=== PATIENT | male | born 1975 | race Caucasian/White ===

== ENCOUNTER 2018-03-06 15:35 | Emergency (ER) | payer OTHER ==
--- NOTE | 2018-03-06 18:33 | ED ---
Skin Complaint - HPI Summary HPI Summary: 42-year-old male presents ER with complaints of rash has been ongoing for the past 4 days. Patient states it's very itchy it's on his arms and back. He has not tried any medications. Denies any discharge. States some are scabbing from scratching. Denies any fever or chills. No past medical history, however a few years ago he did have hyperglycemia however is not treated and was not diagnosed with diabetes at this time.. She denies any recent exposure to poison brenda. No known contacts with similar rash. States he has a normal sleep due to itching and feels exhausted. Nothing makes it better or worse. No new meds foods or soaps. - History of Current Complaint Chief Complaint: EDRashSkinAbscess Time Seen by Provider: 03/06/18 17:45 Stated Complaint: rash Hx Obtained From: Patient Hx From Patient Unobtainable Due To: Dementia Onset/Duration: Started Days Ago Skin Exposure Onset/Duration: Days Ago Timing: Constant Onset Severity: Mild Current Severity: Mild Pain Intensity: 3 Pain Scale Used: 0-10 Numeric Skin Location: Arm - And back Character: Pruritus, Redness, Raised Aggravating Symptom(s): Nothing Alleviating Symptom(s): Nothing Associated Signs & Symptoms: Rash - Allergy/Home Medications Allergies/Adverse Reactions: Allergies Allergy/AdvReac Type Severity Reaction Status Date / Time No Known Allergies Allergy Verified 03/06/18 15:47 PMH/Surg Hx/FS Hx/Imm Hx Endocrine/Hematology History: Denies: Hx Diabetes - Surgical History Surgery Procedure, Year, and Place: n/a - Immunization History Date of Tetanus Vaccine: Unknown Immunizations Up to Date: Yes Infectious Disease History: No Infectious Disease History: Denies: Traveled Outside the [place] in Last 30 Days - Family History Known Family History: Positive: None - Social History Alcohol Use: None Substance Use Type: Reports: None Smoking Status (MU): Never Smoked Tobacco Review of Systems Positive: Fatigue ENT: Negative Cardiovascular: Negative Respiratory: Negative Gastrointestinal: Negative Positive: Rash All Other Systems Reviewed And Are Negative: Yes Physical Exam Triage Information Reviewed: Yes Vital Signs On Initial Exam: Initial Vitals Temp Pulse Resp BP Pulse Ox 97.6 F 104 20 141/92 97 03/06/18 15:39 03/06/18 15:39 03/06/18 15:39 03/06/18 15:39 03/06/18 15:39 Vital Signs Reviewed: Yes Appearance: Positive: Well-Appearing, No Pain Distress, Well-Nourished Skin: Positive: Warm, Skin Color Reflects Adequate Perfusion, Dry, Erythema @ - Erythematous papules spread without any specific pattern and upper arms and back resembling dermatitis. No foreign body, discharge, tenderness. Excoriations noted throughout area of rash. Rest of skin exam normal. Negative : Cold, Soft, Cyanosis @, Target Lesions, Purpura, Scaly Skin/Lesions, Pale, Weeping Skin/Lesions Head/Face: Positive: Normal Head/Face Inspection Eyes: Positive: Normal, EOMI, PHILLIP, Conjunctiva Clear ENT: Positive: Hearing grossly normal Neck: Positive: Supple, Nontender Respiratory/Lung Sounds: Positive: Clear to Auscultation, Breath Sounds Present. Negative: Rales, Rhonchi, Wheezes Cardiovascular: Positive: Normal, RRR, Pulses are Symmetrical in both Upper and Lower Extremities. Negative: Murmur, Rub Abdomen Description: Positive: Nontender, Soft Bowel Sounds: Positive: Present Musculoskeletal: Positive: Normal, Strength/ROM Intact Neurological: Positive: Normal, Sensory/Motor Intact, Alert, Oriented to Person Place, Time, NV Bundle Intact Distally, Normal Gait Diagnostics - Vital Signs Vital Signs Temp Pulse Resp BP Pulse Ox 03/06/18 15:39 97.6 F 104 20 141/92 97 - Laboratory Lab Statement: Any lab studies that have been ordered have been reviewed, and results considered in the medical decision making process. Course/Dx - Course Course Of Treatment: Appears to be contact dermatitis/staph infection. will treat with Bactrim. no drainage available for culture. Recommend trying Benadryl at bedtime for itching and also over the counter hydrocortisone and Benadryl cream. Follow-up with PCP in 3 days for recheck. Aware worsening signs and symptoms watch out for. No other concerns at this time. - Differential Diagnoses - Skin Complaint Differential Diagnoses: Cellulitis, Contact Dermatitis, MRSA - Diagnoses Provider Diagnoses: Contact dermatitis, Staphylococcal infection of skin Discharge - Sign-Out/Discharge Documenting (check all that apply): Patient Departure - Discharge Plan Condition: Good Disposition: HOME Prescriptions: RX: predniSONE TAB* [Deltasone 20 MG TAB*] 20 mg PO DAILY #3 tab Sulfamethox/Trimethoprim DS* [Bactrim DS 800/160 TAB*] 1 tab PO BID #20 tab Patient Education Materials: Contact Dermatitis (ED) Referrals: Juan Rodgers MD [Primary Care Provider] - Additional Instructions: take prescribed medication as directed until entire dose if finished. also recommend taking over the counter benadryl at bedtime apply hydrocortisone or benadryl cream also sold over the counter any new or worsening symptoms please seek medication attention promptly. follow up with pcp to ensure improvement. - Billing Disposition and Condition Condition: GOOD Disposition: Home
[2018-03-06 18:36] VITALS: BP 140/60
== END 2018-03-06 18:33 | disposition home or self-care (01) ==
LOC: ED 15:35
DX: L25.9 Unspecified contact dermatitis, unspecified cause (principal); B95.8 Unspecified staphylococcus as the cause of diseases classified elsewhere; R53.83 Other fatigue
CPT/HCPCS: 99282

== ENCOUNTER → 2018-11-09 15:37 | Emergency (ER) | payer OTHER ==
[~2018-11-09 15:37] MED LIST: Cyclobenzaprine TAB* 10 MG PO ONE
--- NOTE | 2018-11-09 18:47 | ED ---
Lower Extremity - HPI Summary HPI Summary: 42-year-old male presents with left hip pain today. States the pain has been intermittent for the past couple days. He states he was sitting more yesterday. States pain is greatest when he tries to go up a hill or stairs. He 's had this pain in the past. He also states he had abdominal pain earlier but that has resolved. He did have some loose stool couple days ago. No fevers. No nausea vomiting. No back pain. No urinary symptoms. No testicular pain. Pain does not radiate to his groin. No numbness or tingling. No weakness. Hasn't tried anything for his pain. is currently under less stress and was just moved to half-way as loss home. No medical conditions. - History of Current Complaint Chief Complaint: EDExtremityLower Stated Complaint: LEFT LEG PAIN/STOMACH PAIN PER PT Time Seen by Provider: 11/09/18 18:13 Pain Intensity: 6 - Allergies/Home Medications Allergies/Adverse Reactions: Allergies Allergy/AdvReac Type Severity Reaction Status Date / Time No Known Allergies Allergy Verified 11/09/18 15:40 PMH/Surg Hx/FS Hx/Imm Hx Endocrine/Hematology History: Denies: Hx Diabetes Cardiovascular History: Denies: Hx Myocardial Infarction - Surgical History Surgery Procedure, Year, and Place: n/a - Immunization History Date of Tetanus Vaccine: Unknown Infectious Disease History: No Infectious Disease History: Denies: Traveled Outside the [place] in Last 30 Days - Family History Known Family History: Positive: None - Social History Alcohol Use: None Substance Use Type: Reports: None Smoking Status (MU): Never Smoked Tobacco Review of Systems Negative: Fever Negative: Chest Pain Negative: Shortness Of Breath Positive: Abdominal Pain - resolved Positive: Myalgia - left hip pain All Other Systems Reviewed And Are Negative: Yes Physical Exam Triage Information Reviewed: Yes Vital Signs On Initial Exam: Initial Vitals Temp Pulse Resp BP Pulse Ox 99.1 F 114 16 136/106 97 11/09/18 15:40 11/09/18 15:40 11/09/18 15:40 11/09/18 15:40 11/09/18 15:40 Vital Signs Reviewed: Yes Appearance: Positive: Well-Appearing Skin: Positive: Warm, Dry Head/Face: Positive: Normal Head/Face Inspection Eyes: Positive: Normal, Conjunctiva Clear ENT: Positive: Pharynx normal Respiratory/Lung Sounds: Positive: Clear to Auscultation, Breath Sounds Present Cardiovascular: Positive: Normal, RRR Abdomen Description: Positive: Nontender, Soft Bowel Sounds: Positive: Present Musculoskeletal: Positive: Strength/ROM Intact - left leg, Other - good pulses, tenderness over left hip flexor, pain greatest when tries to lift leg, sensation grossly intact, nontender back Neurological: Positive: Reflexes Intact - patella Psychiatric: Positive: Normal Diagnostics - Vital Signs Vital Signs Temp Pulse Resp BP Pulse Ox 11/09/18 15:40 99.1 F 114 16 136/106 97 - Laboratory Lab Statement: Any lab studies that have been ordered have been reviewed, and results considered in the medical decision making process. - Radiology hip Radiology Interpretation Completed By: ED Physician Summary of Radiographic Findings: no fracture Lower Extremity Course/Dx - Course Course Of Treatment: 42-year-old male presents with left hip pain today. States the pain has been intermittent for the past couple days. He states he was sitting more yesterday. States pain is greatest when he tries to go up a hill or stairs. He's had this pain in the past. He also states he had abdominal pain earlier but that has resolved. He did have some loose stool couple days ago. No fevers. No nausea vomiting. No back pain. No urinary symptoms. No testicular pain. Pain does not radiate to his groin. No numbness or tingling. No weakness. Hasn't tried anything for his pain. States is currently under less stress and was just moved to half-way as loss home. No medical conditions. On exam has tenderness over left hip flexors greatest when tries to raise his legs. Nontender back. Neurovascular intact. X-ray normal. Gave flexeril for the pain. Discussed likely has pain over the hip flexors. Told to stretch and placed heat and will give a short course of muscle relaxer. told to follow up primary. Patient understand and presents agrees with the plan. - Diagnoses Differential Diagnosis/HQI/PQRI: Positive: Fracture (Closed), Sprain, Strain Provider Diagnoses: Left hip pain Discharge - Sign-Out/Discharge Documenting (check all that apply): Patient Departure Patient Received Moderate/Deep Sedation with Procedure: No - Discharge Plan Condition: Good Disposition: HOME Patient Education Materials: Hip Pain (ED) Referrals: Juan Rodgers MD [Primary Care Provider] - Additional Instructions: stretch can apply ice or heat Take muscle relaxers three times a day Use ibuprofen or Tylenol for pain every 6 hours Follow up with primary within 5 days Return to ED if develop any new or worsening symptoms - Billing Disposition and Condition Condition: GOOD Disposition: Home
[2018-11-09 20:06] VITALS: BP 123/85
== END | disposition home or self-care (01) ==
LOC: ED 15:37
DX: M25.552 Pain in left hip (principal)
CPT/HCPCS: 99282; A9270-GY

== ENCOUNTER 2019-08-07 10:40 | Emergency (ER) | payer OTHER ==
--- OUTSIDE RECORDS SUMMARY | 2019-08-07 10:55 | XMS REPORT ---
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 Adjustment [id number] SNOMED-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 Adjustment 43085302 SNOMED-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 Relevant diagnostic tests/laboratory data Narrative No Information Procedures Procedure Code CodeSystem Target Date of Status Service Device Device Device Name Site Procedure Delivery Code Name UID Location Psychother [id number] SNOMED-CT () 2018-11-01 completed Mental apy, 45 4 Health- minutes [facility] with [facility] patient [address] [place] [address], [id number] [id number] Psychother [id number] SNOMED-CT () 2018-11-21 completed Mental apy, 45 4 Health- minutes Lucia with [facility] patient [address] [place] [address], [id number] [id number] Psychother [id number] SNOMED-CT () 2018-11-26 completed Mental apy, 45 4 Health- minutes [place] with [facility] patient [address] [place] [address], [id number] [phone] Psychother [id number] SNOMED-CT () 2018-12-03 completed Mental apy, 45 4 Health- minutes Lucia with [facility] patient [address] [place] [address], [phone] Psychother [id number] SNOMED-CT () 2018-12-10 completed Mental apy, 45 4 Health- minutes [place] with [facility] patient [address] [place] [address], [phone] [phone] Psychother [id number] SNOMED-CT () 2018-12-17 completed Mental apy, 45 4 Health- minutes [place] with [facility] patient [address] [place] [address], [id number] [phone] Psychother [id number] SNOMED-CT () 2018-12-24 completed Mental apy, 45 4 Health- minutes Lucia with [facility] patient [address] [place] [address], [phone] SNOMED-CT () 2019-02-05 completed Mental [address], [id number] SNOMED-CT () 2018-11-[address], [id number] SNOMED-CT () 2019-07-[address], [id number] SNOMED-CT () 2018-11-05 completed Mental [address], [id number] SNOMED-CT () 2018-12-[address], [id number] SNOMED-CT () 2019-06-[address], [id number] SNOMED-CT () 2019-06-24 completed Mental [facility], [id number] SNOMED-CT () 2019-01-23 completed Mental [address], [id number] SNOMED-CT () 2019-01-[address], [id number] [phone] SNOMED-CT () 2019-01-[address], [id number] [id number] Encounters/Encounter Diagnoses Encounter Name Encounter Diagnosis Diagnosis Diagnosis Date of Service Code Code Name CodeSystem Diagnosis Delivery Location [facility] [id number] Adjustment SNOMED-CT 2019-07-21 Behavioral Individual 30 disorder Health min with mixed Clinic [address], mood [place], [place], [phone] Vital Signs No Information Social History Element Description Description Start End Code CodeSystem AdditionalInfo Date Date SexAssignedAtBirth Male 1976-0 M AdministrativeGender 11-22 Hospital Discharge Instructions Reason For Referral Medical Equipment FDA Assessments
[2019-08-07] MEDS ORDERED: NS 0.9% 1000 ML** 1,000 ML IV ONE (11:14)
--- NOTE | 2019-08-07 11:39 | ED ---
Throat Pain/Nasal Congestion - HPI Summary HPI Summary: Pt is a 43 y/o M presenting to the ED with a chief complaint of R-sided facial edema. He states he first noticed it a couple of days ago and was pretty sure it was a sinus infection, so he took his fathers azithromycin for 3 days which seemed to reduce the swelling. He ran out, and the pain/edema seemed to flare up again, especially with the cold weather. He reports slight R ear pain and pressure in his R facial region. He denies nasal drainage, visual changes, cough , and sore throat. No trouble swallowing. - History of Current Complaint Chief Complaint: EDGeneral Time Seen by Provider: 08/07/19 11:05 Hx Obtained From: Patient Onset/Duration: Sudden Onset, Lasting Days, Still Present Severity: Moderate Associated Signs And Symptoms: Negative: Nasal Discharge Cough: None - Allergies/Home Medications Allergies/Adverse Reactions: Allergies Allergy/AdvReac Type Severity Reaction Status Date / Time No Known Allergies Allergy Verified 11/09/18 15:40 PMH/Surg Hx/FS Hx/Imm Hx Previously Healthy: Yes Endocrine/Hematology History: Reports: Hx Diabetes - not on medication rn, metformin made him very nauseous/ill Cardiovascular History: Denies: Hx Myocardial Infarction Sensory History: Denies: Hx Legally Blind, Hx Deafness Opthamlomology History: Denies: Hx Legally Blind EENT History: Denies: Hx Deafness - Surgical History Surgical History: None Surgery Procedure, Year, and Place: n/a - Immunization History Date of Tetanus Vaccine: Unknown Infectious Disease History: No Infectious Disease History: Denies: Traveled Outside the [place] in Last 30 Days - Family History Known Family History: Negative: Renal Disease - Social History Occupation: Employed Full-time Alcohol Use: None Hx Substance Use: No Substance Use Type: Reports: None Hx Tobacco Use: Yes Smoking Status (MU): Light Every Day Tobacco Smoker Review of Systems Eyes: Negative Positive: Ear Ache, Other - sinus pain. Negative: Sore Throat, Nasal Discharge Negative: Cough All Other Systems Reviewed And Are Negative: Yes Physical Exam - Summary Physical Exam Summary: Constitutional: Well-developed, Well-nourished, Alert. (-) Distressed Skin: Warm, Dry HENT: R maxillary edema. TMs are richter & pearly bilaterally. Poor dentition with no obvious apical abscess. No significant trismus, no submandibular swelling Eyes: Conjunctiva normal. No pain with EOM. Neck: Musculoskeletal ROM normal neck. (-) JVD, (-) Stridor, (-) Nuchal rigidity Cardio: Rhythm regular, rate tachycardic, Heart sounds normal; Intact distal pulses; Radial pulses are 2+ and symmetric. (-) Murmur Pulmonary/Chest wall: Effort normal. (-) Respiratory distress, (-) Wheezes, (-) Rales Abd: Soft, (-) tenderness, (-) Distension, (-) Guarding, (-) Rebound Musculoskeletal: (-) Edema Lymph: (+) Cervical adenopathy Neuro: Alert, Oriented x3 Psych: Mood and affect Normal Triage Information Reviewed: Yes Vital Signs On Initial Exam: Initial Vitals Temp Pulse Resp BP Pulse Ox 96.0 F 117 18 137/91 98 08/07/19 10:45 08/07/19 10:45 08/07/19 10:45 08/07/19 10:45 08/07/19 10:45 Vital Signs Reviewed: Yes Procedures - Sedation Patient Received Moderate/Deep Sedation with Procedure: No - Incision and Drainage Right Upper Site: molar R 1st Anesthesia: Topical, Local Instrument(s): Scalpel Diagnostics - Vital Signs Vital Signs Temp Pulse Resp BP Pulse Ox 08/07/19 10:45 96.0 F 117 18 137/91 98 - Laboratory Result Diagrams: 08/07/19 11:22 08/07/19 11:22 Lab Statement: Any lab studies that have been ordered have been reviewed, and results considered in the medical decision making process. - CT CT Maxillofacial CT Interpretation Completed By: Radiologist Summary of CT Findings: EXTENSIVE CARIOUS DISEASE WITH A 1.4 CM LOCULATED FLUID COLLECTION ANTERIOR TO THE ALVEOLAR PROCESS OF THE RIGHT MAXILLA CONSISTENT WITH ODONTOGENIC ABSCESS. ED physician has reviewed this report. EENT Course/Dx - Course Course Of Treatment: 43 y/o male w hx DM p/w R facial swelling, mild trismus on exam. - concern for dental abcesss. Check labs including CBC to assess for infection. Check CT max face. Will also give clindamycin. - attempted I&D w scant drainage, suspcicion for persistent abscesss. Able to open mouth well, no significant trismus. Tolerating PO. - lab w elevated BG, given fluids. has been on metformin in past. HR down to 70s. - will send home w clindamycin, needs urgent dental follow up. advised to return for worsening symptoms. - Diagnoses Provider Diagnoses: Dental abscess, Diabetes Discharge ED - Sign-Out/Discharge Documenting (check all that apply): Patient Departure - Discharge Plan Condition: Stable Disposition: HOME Prescriptions: Clindamycin HCl 450 mg PO TID 7 Days #63 capsule Ibuprofen TAB* [Motrin TAB* 800 MG] 800 mg PO TID PRN 10 Days #30 tab PRN Reason: Pain - Moderate Patient Education Materials: Dental Abscess (ED) Referrals: Cassandra Quintana DO [Primary Care Provider] - Additional Instructions: You were seen in the emergency department for facial swelling. Your CT scan showed a dental abscess. It is very important that you take your antibiotics, clindamycin, 3 times a day and follow-up with a dentist as soon as possible. Your blood sugar was also high today. Please follow up with your primary care doctor in next 2-3 days and return to emergency department for trouble opening your mouth, trouble swallowing, fevers , or worsening or concerning symptoms. It was a pleasure taking care of you today. - Billing Disposition and Condition Condition: STABLE Disposition: Home - Attestation Statements Document Initiated by Tarynibtahmina: Yes Documenting Scribe: Rossana Calles Provider For Whom Cindy is Documenting (Include Credential): Fernie Brian MD Scribe Attestation: I, Rossana Calles, scribed for Fernie Brian MD on at 1518. Scribe Documentation Reviewed: Yes Provider Attestation: The documentation as recorded by the tarynibtahmina, Rossana Calles accurately reflects the service I personally performed and the decisions made by , Fernie Brian MD Status of Scribe Document: Viewed
[2019-08-07 11:40] LABS: ABS Basophils 0.1 10^3/ul (0-0.2); ABS Eosinophils 0.4 10^3/ul (0-0.6); ABS Lymphocytes 1.7 10^3/ul (1.0-4.8); ABS Monocytes 0.4 10^3/ul (0-0.8); ABS Neutrophils 5.9 10^3/ul (1.5-7.7); Eosinophil % 5.2 %; Hematocrit 46 % (42-52); Hemoglobin 16.6 g/dL (14.0-18.0); Lymphocyte % 20.3 %; Mean Corpuscular HGB Conc 36 g/dL (31-36); Mean Corpuscular Hemoglobin 31 pg (27-31); Mean Corpuscular Volume 85 fL (80-94); Mean Platelet Volume 8.3 fL (7.4-10.4); Nucleated Red Blood Cells % 0.1; Platelet Count 264 10^3/uL (150-450); Red Blood Count 5.44 10^6 /uL (4.18-5.48); Red Cell Distribution Width 13 % (10-15); White Blood Count 8.6 10^3/uL (3.5-10.8)
[2019-08-07] MEDS ORDERED: Iodixanol* (CONTRAST) 320 MG/ML 100 ML SDV IV ONE (11:44)
[2019-08-07 12:05] LABS: Albumin/Globulin Ratio 1.2 (1-3); BUN/Creatinine Ratio 14.3 (8-20); Calcium 9.2 mg/dL (8.6-10.3); EGFR African American 149.6 (>60); EGFR Non-African American 123.7 (>60); Globulin 3.4 g/dL (2-4); Potassium 4.1 mmol/L (3.5-5.0); Total Bilirubin 0.5 mg/dL (0.2-1.0); Total Protein 7.4 g/dL (6.4-8.9)
[2019-08-07] MEDS ORDERED: Lidocaine 1% MDV 20 ML INJ ONE (12:45)
[2019-08-07] MEDS ORDERED: Clindamycin 600 MG/D5W BAG(*) 600 MG/50 ML BAG IV ONE (12:45)
[2019-08-07] MEDS ORDERED: Lidocaine 1% MPF ** 5 ML VIAL INJ ONE (14:00)
[2019-08-07] MEDS ORDERED: Lidocaine 2% VISCOUS* 15 ML UDC SWISH SPIT ONE (14:33)
[2019-08-07] MEDS ORDERED: fentaNYL* 50 MCG/ML 2 ML VIAL (100 MCG VIAL) IV SLOW PU ONE (14:33)
[2019-08-07] MEDS ORDERED: Ondansetron INJ* 2 MG/ML VIAL IV ONE (14:34)
[2019-08-07 15:38] VITALS: BP 151/89
== END 2019-08-07 15:36 | disposition home or self-care (01) ==
LOC: ED 10:40
DX: K04.7 Periapical abscess without sinus (principal); E11.9 Type 2 diabetes mellitus without complications; F17.200 Nicotine dependence, unspecified, uncomplicated
CPT/HCPCS: 36415; 41800; 70487; 80053; 82803; 85025; 96361; 96365; 96375; 99283; J3010; Q9967

== ENCOUNTER 2020-11-14 12:30 | Inpatient (IN) ==
[2020-11-14] MEDS ORDERED: Heparin - STEMI 5,000 UNITS/ML 1 ml VIAL IV ONE (12:47)
[2020-11-14 12:55] LABS: ABS Basophils 0.1 10^3/ul (0-0.2); ABS Eosinophils 0.2 10^3/ul (0-0.6); ABS Lymphocytes 1.6 10^3/ul (1.0-4.8); ABS Monocytes 0.5 10^3/ul (0-0.8); ABS Neutrophils 3.9 10^3/ul (1.5-7.7); Eosinophil % 3.7 %; Hematocrit 47 % (42-52); Lymphocyte % 25.2 %; Mean Corpuscular HGB Conc 34 g/dL (31-36); Mean Corpuscular Hemoglobin 29 pg (27-31); Mean Corpuscular Volume 85 fL (80-94); Mean Platelet Volume 8.5 fL (7.4-10.4); Platelet Count 243 10^3/uL (150-450); Red Blood Count 5.51 10^6 /uL (4.18-5.48); Red Cell Distribution Width 13 % (10-15); White Blood Count 6.4 10^3/uL (3.5-10.8)
[2020-11-14 13:06] LABS: Activated Partial Thrombo Time 30.8 seconds (26.0-38.0); INR 1.1 (0.82-1.09)
[2020-11-14] MEDS ORDERED: Lidocaine 1% VIAL 10 MG/ML VIAL ONE (13:09)
[2020-11-14] MEDS ORDERED: Heparin 1,000 UNIT/ML 10 ml (10,000 UNITS) CATHLAB/DIALYSIS ONE (13:09)
[2020-11-14] MEDS ORDERED: fentaNYL 100 mcg/2 ml 50 MCG/ML VIAL ONE (13:09)
[2020-11-14] MEDS ORDERED: nitroGLYCERIN DRIP 25,000 MCG/250 ML BTL ONE (13:09)
[2020-11-14] MEDS ORDERED: VERAPAMIL 2.5 MG/ML 2 ML VIAL ** 5 mg/2 ml ONE (13:09)
[2020-11-14] MEDS ORDERED: Heparin 2 UNITS/ML 1000 mls 3,000 ML IV ONE (13:09)
[2020-11-14] MEDS ORDERED: Midazolam 5 mg/5 ml VIAL 1 mg/ml 5 ml VIAL (5 mg) ONE (13:09)
[2020-11-14] MEDS ORDERED: Iohexol 350 (CONTRAST) 200 ML MDV IV ONE (13:09)
[2020-11-14] MEDS ORDERED: diPHENhydraMINE IV 50 MG/ML 1 ml VIAL (BENADRYL) ONE (13:10)
[2020-11-14 13:13] LABS: ALT 20 U/L (7-52); AST 17 U/L (13-39); Albumin/Globulin Ratio 1.3 (1-3); Alkaline Phosphatase 128 U/L (34-104); Anion Gap 9 mmol/L (2-11); Blood Urea Nitrogen 8 mg/dL (6-24); CO2 Carbon Dioxide 25 mmol/L (22-32); Calcium 9.4 mg/dL (8.6-10.3); Chloride 97 mmol/L (101-111); Creatine Kinase 105 U/L (10-223); EGFR African American 112.9 (>60); EGFR Non-African American 93.3 (>60); Globulin 3.2 g/dL (2-4); Glucose 379 mg/dL (70-100); LDL Cholesterol Direct 139 mg/dL; Sodium 131 mmol/L (135-145); Total Protein 7.2 g/dL (6.4-8.9)
[2020-11-14 13:17] LABS: CKMB ng/mL 9.4 ng/mL (0.6-6.3)
[2020-11-14] MEDS ORDERED: Bivalirudin 250 MG VIAL ONE ×2 (13:52→14:12)
[2020-11-14] MEDS ORDERED: HYDROmorphone 1 MG/1 ML SYRINGE ONE ×2 (13:59→14:49)
[2020-11-14] MEDS ORDERED: Adenosine 3 MG/ML 2 ml VIAL (6 mg) ONE (14:00)
[2020-11-14] MEDS ORDERED: Amiodarone 150 mg IVPREMIX 0 MG/0 ML BAG IV ONE (14:12)
[2020-11-14] MEDS ORDERED: NS 0.9% 1000 ml BAG 1,000 ML IV SCH (16:00)
[2020-11-14] MEDS ORDERED: Dextrose 50% Syringe 50 ml 25 GM/50 ML SYRINGE IV PUSH PRN (16:40)
[2020-11-14 16:46] LABS: Troponin I 1.45 ng/mL (<0.03)
[2020-11-14 17:30] LABS: Troponin I 0.98 ng/mL (<0.03)
[2020-11-14 17:45] LABS: Creatine Kinase 91 U/L (10-223)
[2020-11-14 18:16] LABS: TSH Ultra Thyroid Stim Horm 5.26 mcIU/mL (0.34-5.60)
[2020-11-14 22:44] LABS: Troponin I 2.24 ng/mL (<0.03)
[2020-11-15 06:35] LABS: ABS Basophils 0.1 10^3/ul (0-0.2); ABS Eosinophils 0.3 10^3/ul (0-0.6); ABS Lymphocytes 2.1 10^3/ul (1.0-4.8); ABS Monocytes 0.8 10^3/ul (0-0.8); Hematocrit 42 % (42-52); Hemoglobin 14.3 g/dL (14.0-18.0); Lymphocyte % 25.8 %; Mean Corpuscular HGB Conc 34 g/dL (31-36); Mean Corpuscular Hemoglobin 29 pg (27-31); Mean Corpuscular Volume 85 fL (80-94); Mean Platelet Volume 8.7 fL (7.4-10.4); Platelet Count 226 10^3/uL (150-450); Red Blood Count 4.94 10^6 /uL (4.18-5.48); Red Cell Distribution Width 13 % (10-15); White Blood Count 8.3 10^3/uL (3.5-10.8)
[2020-11-15 07:01] LABS: ALT 18 U/L (7-52); AST 14 U/L (13-39); Albumin 3.6 g/dL (3.2-5.2); Albumin/Globulin Ratio 1.3 (1-3); Alkaline Phosphatase 105 U/L (34-104); Anion Gap 8 mmol/L (2-11); BUN/Creatinine Ratio 18.2 (8-20); Blood Urea Nitrogen 14 mg/dL (6-24); CO2 Carbon Dioxide 24 mmol/L (22-32); Calcium 8.9 mg/dL (8.6-10.3); Chloride 100 mmol/L (101-111); Cholesterol 156 mg/dL; Creatine Kinase 76 U/L (10-223); EGFR African American 133.4 (>60); EGFR Non-African American 110.3 (>60); Globulin 2.8 g/dL (2-4); Glucose 285 mg/dL (70-100); HDL Cholesterol 23.7 mg/dL; LDL Cholesterol 76 mg/dL; Potassium 3.8 mmol/L (3.5-5.0); Sodium 132 mmol/L (135-145); Total Protein 6.4 g/dL (6.4-8.9); Triglycerides 281 mg/dL
[2020-11-15 07:02] LABS: CKMB ng/mL 6.1 ng/mL (0.6-6.3); Troponin I 1.98 ng/mL (<0.03)
[2020-11-15] MEDS ORDERED: Perflutren Lipid Microsphere 3 ML VIAL ONE (09:19)
[2020-11-16 10:45] LABS: Troponin I 1.13 ng/mL (<0.03)
[2020-11-16 10:48] LABS: Anion Gap 8 mmol/L (2-11); BUN/Creatinine Ratio 16.2 (8-20); Blood Urea Nitrogen 12 mg/dL (6-24); CO2 Carbon Dioxide 26 mmol/L (22-32); Calcium 9.1 mg/dL (8.6-10.3); Chloride 99 mmol/L (101-111); EGFR African American 139.7 (>60); EGFR Non-African American 115.4 (>60); Glucose 253 mg/dL (70-100); Sodium 133 mmol/L (135-145)
[2020-11-16 15:28] VITALS: BP 109/68
[2020-11-16] MEDS ORDERED: Insulin GLARGINE 100 un/ml 10 ml VIAL SUBCUT SCH (21:00)
== END 2020-11-16 16:25 | disposition home or self-care (01) | DRG 174 ==
LOC: ED 12:30 → CHICATH 13:25 → ICU 16:02 → MEDTELE 11-15 12:17
PROVIDERS: ADMIT Internal Medicine Cardiovascular Disease; ATTEND Hospitalist